=== PATIENT | female | born 1950 | race Caucasian/White ===

== ENCOUNTER → 2017-05-30 | Day surgery (SDC) | payer MEDICARE, BC ==
[~2017-05-30] VITALS: Ht 162.6 cm; Wt 78.5 kg
[2017-05-30] VITALS (15 sets, daily range): BP systolic 101–128; BP diastolic 50–69
[~2017-05-30] MED LIST: ACET-687 PO; ANCEF 2 GM in NS 100ML 100 ML IV SCH; ANCEF ONE; BENADRYL IV PRN; BUSP30TA PO; CEPH500T PO; DECADRON ONE; DIPRIVAN IV ONE; DOXE50CA PO; GABA300C10 PO; LIDOCAINE 2% VIAL ONE; NORCO 5MG PO PRN; NS 100ML 100 ML IV ONE; PHENERGAN IV PRN; PRAM0.255 PO; SERT100T PO; SODIUM CHLORIDE IR ONE; SUBLIMAZE IV PRN; SUBLIMAZE ONE; TORADOL ONE; VENTOLIN IH STA; VERSED ONE; XYLOCAINE ONE; ZOFRAN IV PRN; ZOFRAN ONE
[2017-05-30] MEDS: LACTATED RINGERS 1,000 ML IV SCH ×2 (08:25→10:32)
[2017-05-30 08:36] LABS: CALCIUM 9.3 mg/dL (8.4-10.5); CARBON DIOXIDE 29.1 mmol/L (20.0-32)
--- NOTE | 2017-05-30 12:01 | OPH ---
DATE OF SURGERY: 05/30/2017 PREOPERATIVE DIAGNOSES: 1. Closed comminuted displaced fractures of the left second, third and fourth metatarsals. 2. Closed dorsal dislocation of the left fifth toe at the MTP joint. POSTOPERATIVE DIAGNOSES: 1. Closed comminuted displaced fractures of the left second, third and fourth metatarsals. 2. Closed dorsal dislocation of the left fifth toe at the MTP joint. OPERATIVE PROCEDURE: 1. Open reduction and internal fixation left second, third and fourth metatarsals. 2. Closed reduction and percutaneous pinning of the left fifth toe dislocation at the MTP joint. SURGEON: Rogelio Lock MD ANESTHESIA: LMA. TOURNIQUET TIME: 34 minutes at 300 mmHg. DRAINS: None. BLOOD LOSS: 15 mL. DESCRIPTION OF INDICATIONS: The patient is a 67-year-old female who fell at home 7-10 days ago injuring the right foot. She was seen in the office last week where her x-rays revealed that she had displaced comminuted fractures of the second, third and fourth metatarsals with a dislocation of the little toe at the MTP joint. The patient was taken to the operating room today for the above procedures. DESCRIPTION OF PROCEDURE: The patient was placed in the operating table in the supine position. LMA anesthetic was induced without difficulty. A well-padded tourniquet was placed around the left thigh. Left lower extremity was then sterilely prepped and draped. The patient initially had the 0.062 guidewire introduced into the second metatarsal head. We were able to percutaneously stabilize the second metatarsal head; however, the third and fourth were felt to be too comminuted to be able to get the fracture reduced and then stabilize it, so we made a dorsal incision between the third and the fourth metatarsals. The incision was taken through the skin and the subcutaneous tissues. The tendons were retracted and the fracture of the third metatarsal was then defined. The distal fragment was identified and 0.062 K-wire was passed from proximal to distal. We then reduced the fracture and passed the kendra in a retrograde method from distal to proximal. AP and lateral C-arm view showed satisfactory reduction of the fracture and satisfactory positioning of the hardware. The pin was then bent and cut off. Likewise, the fourth metatarsal fracture was identified. The distal end was delivered through the wound and then the 0.062 K-wire was passed from proximal to distal. The fracture was then reduced and the pin was advanced down the metacarpal shaft in a retrograde manner. Again, AP and lateral views showed satisfactory alignment of the fracture and satisfactory positioning of the hardware. The pin was bent and cut off. The fifth toe was reduced manually and a 0.062 pin was placed through the distal, middle and proximal phalanxes across the MTP joint. AP and lateral views showed that the MTP joint was satisfactorily reduced and the hardware was in satisfactory position. The patient then had the pin bent and cut off. The wounds were then irrigated. The skin was closed with interrupted 3-0 Ethilon. The patient had a compressive dressing applied. She was extubated in the operating room, sent to recovery. Prior to the wound being covered, we did an ankle block with 2% lidocaine dorsally and laterally. Rogelio Lock MD DR: BRANDON/stuart JOB# [id number]
--- NOTE | 2017-05-30 12:08 | DIREP ---
PROCEDURE:XRAY FOOT MIN 3 VWS-LT COMPARISON:None. INDICATIONS:ORIF OF THE RIGHT FOOT FINDINGS: BONES:Three views of the left foot. Transfixing pains identified involving the metatarsals of the left foot, involving the 2nd, 3rd, 4th and the 5th metatarsals. There is evidence for fractures involving the neck/distal shaft of the 2nd, 3rd and the 4th metatarsal. There is additional transfixing pin identified involving the 5th metatarsal. Surgical dressing identified along with soft tissue swelling. A calcaneal spur noted. JOINTS:Normal. SOFT TISSUES:Normal. OTHER:No additional findings. CONCLUSION:Postoperative changes of internal fixation by placement of pins involving the 2nd through the 5th metatarsals of the left foot. Fractures identified involving the distal shaft/neck of the 2nd, 3rd and the 4th metatarsal of the left foot. Dictated by: Sae Laurent MD on 05/30/2017 at 12:01 PM
== END | DRG 563 ==
LOC: SURG 00:22
PROVIDERS: ATTEND Orthopaedic Surgery
DX: S92.322A Displaced fracture of second metatarsal bone, left foot, initial encounter for closed fracture (principal); S92.912A Unspecified fracture of left toe(s), initial encounter for closed fracture; S92.332A Displaced fracture of third metatarsal bone, left foot, initial encounter for closed fracture; S92.342A Displaced fracture of fourth metatarsal bone, left foot, initial encounter for closed fracture; W19.XXXA Unspecified fall, initial encounter; Y93.89 Activity, other specified; Y92.89 Other specified places as the place of occurrence of the external cause; Y99.8 Other external cause status; E66.3 Overweight; Z68.29 Body mass index [BMI] 29.0-29.9, adult; Z90.710 Acquired absence of both cervix and uterus; Z98.890 Other specified postprocedural states; F17.210 Nicotine dependence, cigarettes, uncomplicated
CPT/HCPCS: 28485 ×3; 28515; 36415; 73630; 76000; 80048; 94640; J0690; J1100; J1885; J2001; J2250; J2405; J3010; J3490 ×2; J7030; J7050; C1713

== ENCOUNTER 2017-07-21 00:05 | Day surgery (SDC) | payer MEDICARE, BC ==
[~2017-07-21] VITALS: Ht 162.6 cm; Wt 78.5 kg
[2017-07-21] VITALS (7 sets, daily range): BP systolic 117–134; BP diastolic 65–80
[~2017-07-21 00:05] MED LIST changes: -ANCEF 2 GM in NS 100ML 100 ML IV SCH; -ANCEF ONE; -BENADRYL IV PRN; -DECADRON ONE; -DIPRIVAN IV ONE; -LIDOCAINE 2% VIAL ONE; -NORCO 5MG PO PRN; -NS 100ML 100 ML IV ONE; -PHENERGAN IV PRN; -SODIUM CHLORIDE IR ONE; -SUBLIMAZE IV PRN; -SUBLIMAZE ONE; -TORADOL ONE; -VENTOLIN IH STA; -VERSED ONE; -XYLOCAINE ONE; -ZOFRAN IV PRN; -ZOFRAN ONE
[2017-07-21] MEDS ORDERED: LACTATED RINGERS 1,000 ML ONE (05:17)
[2017-07-21] MEDS: LACTATED RINGERS 1,000 ML IV SCH (06:16)
[2017-07-21] MEDS ORDERED: SODIUM CHLORIDE IR ONE (07:03)
[2017-07-21] MEDS ORDERED: LIDOCAINE 2% VIAL ONE ×2 (07:04→07:14)
[2017-07-21] MEDS ORDERED: VERSED ONE (07:14)
[2017-07-21] MEDS ORDERED: SUBLIMAZE ONE (07:14)
[2017-07-21] MEDS ORDERED: ACET1TAB34 PO (08:56)
--- NOTE | 2017-07-21 09:07 | OPH ---
DATE OF SURGERY: 07/21/2017 PREOPERATIVE DIAGNOSIS: Painful hardware about the left foot. POSTOPERATIVE DIAGNOSIS: Painful hardware about the left foot. OPERATIVE PROCEDURE: Deep hardware removal, right foot. SURGEON: Rogelio Lock MD ANESTHESIA: Ankle block plus IV sedation. BLOOD LOSS: 10 mL DESCRIPTION OF INDICATIONS: The patient is a 67-year-old female. She is approximately 6 to 8 weeks out from an open reduction internal fixation of multiple metatarsal fractures about the left foot as well as a dislocation about the MCP joint of the left little toe. The patient's x-rays show that the fractures have healed satisfactorily. The pins had migrated beneath the skin and she was taken to the operating room today for deep hardware removal. DESCRIPTION OF PROCEDURE: The patient was given an ankle block in the recovery room by the Anesthesia department. She was then placed on the operating table in the supine position. Some IV sedation was given. The patient had a padded tourniquet placed around her left thigh. The left lower extremity was then sterilely prepped and draped. The patient had a digital block given about the MTP joint of the little toe with some 2% lidocaine plain. Otherwise, the tips of the pins at the second, third, and fourth metatarsals were palpated and then injected with 2% lidocaine plain. The left little toe had the pin removed. On the second, third and fourth metatarsals, we made a stab wound at about the tips of the toes. Using the C-arm, we located the tips of the pins and then the pins were removed without incident using a hemostat. The wounds were irrigated and left open, a compressive dressing was applied, and the patient was sent to recovery in a stable condition. Rogelio Lock MD DR: BRANDON/stuart JOB# [id number]
== END 2017-07-21 09:40 | disposition home or self-care (01) | DRG 561 ==
LOC: SDC 00:05
PROVIDERS: ATTEND Orthopaedic Surgery
DX: T84.84XA Pain due to internal orthopedic prosthetic devices, implants and grafts, initial encounter (principal); E66.3 Overweight; Z68.29 Body mass index [BMI] 29.0-29.9, adult; J44.9 Chronic obstructive pulmonary disease, unspecified; Z98.890 Other specified postprocedural states; Z90.710 Acquired absence of both cervix and uterus; F17.210 Nicotine dependence, cigarettes, uncomplicated
CPT/HCPCS: 20680; 76000; J2001 ×2; J2250; J3010; J7030; J7120